=== PATIENT | female | born 1945 | race Caucasian/White ===

== ENCOUNTER 2019-03-27 08:21 | Emergency (ER) | payer OTHER ==
[~2019-03-27] VITALS: Ht 157.5 cm; Wt 71.2 kg
[2019-03-27] MEDS ORDERED: NORVASC5 MG PO (08:31)
[2019-03-27] MEDS ORDERED: COZAAR100 MG PO (08:32)
[2019-03-27] MEDS ORDERED: LEVOXYL75 MCG PO (08:32)
[2019-03-27] MEDS ORDERED: CALCIUM 600 +1 EAC1 PO (08:32)
[2019-03-27] MEDS ORDERED: ZOCOR 10 MG TAB10 MG PO (08:32)
[2019-03-27] MEDS ORDERED: GLUCOPHAGE XR500 MG PO (08:33)
[2019-03-27] MEDS ORDERED: ACTOS15 MG PO (08:33)
[2019-03-27] MEDS ORDERED: METFORMIN HCL500 MG PO (08:33)
[2019-03-27] MEDS ORDERED: ASPIR 8181 MG PO (08:34)
[2019-03-27 08:49] LABS: URINE BILIRUBIN NEGATIVE (Negative); URINE BLOOD NEGATIVE (Negative); URINE CLARITY CLEAR; URINE COLOR YELLOW; URINE GLUCOSE-RANDOM NEGATIVE (Negative); URINE KETONES NEGATIVE (Negative); URINE LEUKOCYTES-REFLEX NEGATIVE (Negative); URINE NITRITE-REFLEX NEGATIVE (Negative); URINE PROTEIN NEGATIVE (Negative); URINE SPECIFIC GRAVITY <= 1.005 (1.005-1.030); URINE UROBILINOGEN 0.2 E.U./dl (0.2-1.0)
[2019-03-27 08:51] LABS: ABSOLUTE BASOPHILS 0.2 thou/uL (0.0-0.2); ABSOLUTE EOSINOPHILS 0.7 thou/uL (0.0-0.7); ABSOLUTE LYMPHOCYTES 3.3 thou/uL (0.8-5.3); ABSOLUTE MONOCYTES 0.7 thou/uL (0.0-1.2); ABSOLUTE NEUTROPHILS 5.1 thou/uL (1.6-8.1); BASOPHILS 1.8 %; EOSINOPHILS 7.1 %; HEMATOCRIT 35.8 % (37.0-47.0); HEMOGLOBIN 12.3 gm/dL (12.0-15.0); LYMPHOCYTES 32.8 %; MCH 29.1 pg (26.0-34.0); MCHC 34.4 g/dL (28.0-37.0); MCV 84.5 fL (80.0-100.0); MPV 10.1 fl. (7.2-11.1); NUCLEATED RBCS 0 /100WBC; PLATELET COUNT* 354 thou/uL (150-400); POLYS 51.3 %; RBC 4.24 mil/uL (4.20-5.00); RDW-CV 14.4 % (10.5-14.5)
[2019-03-27 08:59] LABS: CALCIUM 9.8 mg/dL (8.5-10.1); CREATININE 1.1 mg/dL (0.6-1.3); POTASSIUM 3.7 mmol/L (3.5-5.1)
[2019-03-27 09:03] LABS: ALBUMIN 3.4 g/dL (3.4-5.0); TOTAL BILIRUBIN 0.5 mg/dL (<0.1-1.0); TOTAL PROTEIN 7.7 g/dL (6.4-8.2)
[2019-03-27] MEDS ORDERED: ZOFRAN ODT4 MG DISSOLVE (09:51)
[2019-03-27] MEDS ORDERED: CIPRO500 MG PO (09:51)
[2019-03-27] MEDS ORDERED: HYDROCODONE-AP1 EAC6 PO (09:51)
[2019-03-27 11:36] VITALS: BP 127/66
== END 2019-03-27 11:36 | disposition home or self-care (01) ==
LOC: M.ERS 08:21
PROVIDERS: Emergency Medicine Emergency Medical Services
DX: R10.32 Left lower quadrant pain (principal); E11.9 Type 2 diabetes mellitus without complications; I10 Essential (primary) hypertension; E03.9 Hypothyroidism, unspecified; Z90.49 Acquired absence of other specified parts of digestive tract; Z90.710 Acquired absence of both cervix and uterus

== ENCOUNTER 2019-07-24 09:50 | Emergency (ER) | payer OTHER ==
[~2019-07-24] VITALS: Ht 157.5 cm; Wt 69.4 kg
[~2019-07-24 09:50] MED LIST: ACTOS15 MG PO; ASPIR 8181 MG PO; CALCIUM 600 +1 EAC1 PO; CIPRO500 MG PO; COZAAR100 MG PO; GLUCOPHAGE XR500 MG PO; HYDROCODONE-AP1 EAC6 PO; LEVOXYL75 MCG PO; METFORMIN HCL500 MG PO; NORVASC5 MG PO; ZOCOR 10 MG TAB10 MG PO; ZOFRAN ODT4 MG DISSOLVE
[2019-07-24 10:41] LABS: ABSOLUTE BASOPHILS 0.2 thou/uL (0.0-0.2); ABSOLUTE EOSINOPHILS 0.7 thou/uL (0.0-0.7); ABSOLUTE MONOCYTES 0.5 thou/uL (0.0-1.2); ABSOLUTE NEUTROPHILS 4.4 thou/uL (1.6-8.1); BASOPHILS 2.5 %; EOSINOPHILS 7.5 %; HEMATOCRIT 36.8 % (37.0-47.0); HEMOGLOBIN 12.2 gm/dL (12.0-15.0); LYMPHOCYTES 34.4 %; MCH 28.5 pg (26.0-34.0); MCV 86.4 fL (80.0-100.0); MONOCYTES 5.7 %; MPV 10.3 fl. (7.2-11.1); NUCLEATED RBCS 0 /100WBC; PLATELET COUNT* 299 thou/uL (150-400); POLYS 49.9 %; RBC 4.26 mil/uL (4.20-5.00); RDW-CV 14.8 % (10.5-14.5); WBC 8.8 thou/uL (4.0-11.0)
[2019-07-24 10:52] LABS: CALCIUM 9.4 mg/dL (8.5-10.1); CREATININE 0.9 mg/dL (0.6-1.3); POTASSIUM 3.2 mmol/L (3.5-5.1)
[2019-07-24 10:57] LABS: ALBUMIN 3.5 g/dL (3.4-5.0); TOTAL BILIRUBIN 0.4 mg/dL (<0.1-1.0); TOTAL PROTEIN 7.8 g/dL (6.4-8.2)
[2019-07-24 11:30] LABS: URINE BILIRUBIN NEGATIVE (Negative); URINE BLOOD NEGATIVE (Negative); URINE CLARITY CLEAR; URINE COLOR YELLOW; URINE GLUCOSE-RANDOM NEGATIVE (Negative); URINE KETONES NEGATIVE (Negative); URINE LEUKOCYTES-REFLEX NEGATIVE (Negative); URINE NITRITE-REFLEX NEGATIVE (Negative); URINE PROTEIN NEGATIVE (Negative); URINE UROBILINOGEN 0.2 E.U./dl (0.2-1.0)
[2019-07-24] MEDS ORDERED: CLARITIN10 MG PO (12:31)
[2019-07-24] MEDS ORDERED: DIAZEPAM2 MG PO (12:31)
[2019-07-24] MEDS ORDERED: PSEUDOEPHEDRIN120 M1 PO (12:31)
[2019-07-24 12:52] VITALS: BP 121/62
== END 2019-07-24 12:53 | disposition home or self-care (01) ==
LOC: M.ERS 09:50
PROVIDERS: Personal Emergency Response Attendant
DX: R42 Dizziness and giddiness (principal); I10 Essential (primary) hypertension; E11.9 Type 2 diabetes mellitus without complications; E03.9 Hypothyroidism, unspecified; Z90.49 Acquired absence of other specified parts of digestive tract; Z90.710 Acquired absence of both cervix and uterus

== ENCOUNTER 2020-09-19 13:50 | Emergency (ER) | payer OTHER ==
[~2020-09-19] VITALS: Ht 157.5 cm; Wt 71.7 kg
[~2020-09-19 13:50] MED LIST changes: +CLARITIN10 MG PO; +DIAZEPAM2 MG PO; +PSEUDOEPHEDRIN120 M1 PO
[2020-09-19] MEDS ORDERED: KEFLEX500 M1 PO (14:01)
[2020-09-19] MEDS ORDERED: BACTRIM DS TAB1 EACH PO (14:01)
[2020-09-19 14:23] LABS: URINE BILIRUBIN NEGATIVE (Negative); URINE BLOOD NEGATIVE (Negative); URINE CLARITY CLEAR; URINE COLOR YELLOW; URINE GLUCOSE-RANDOM NEGATIVE (Negative); URINE KETONES NEGATIVE (Negative); URINE LEUKOCYTES-REFLEX NEGATIVE (Negative); URINE NITRITE-REFLEX NEGATIVE (Negative); URINE PROTEIN NEGATIVE (Negative); URINE SPECIFIC GRAVITY 1.015 (1.005-1.030); URINE UROBILINOGEN 0.2 E.U./dl (0.2-1.0)
[2020-09-19 14:53] LABS: APTT 21.9 Seconds (25.0-31.3); HEMATOCRIT 35.3 % (37.0-47.0); HEMOGLOBIN 11.8 gm/dL (12.0-15.0); MCH 28.9 pg (26.0-34.0); MCHC 33.5 g/dL (28.0-37.0); MCV 86.4 fL (80.0-100.0); MPV 10.4 fl. (7.2-11.1); NUCLEATED RBCS 0 /100WBC; PLATELET COUNT* 314 thou/uL (150-400); PROTIME 10.6 Seconds (9.20-11.50); RBC 4.08 mil/uL (4.20-5.00); RDW-CV 14.5 % (10.5-14.5)
[2020-09-19 14:54] LABS: CREATININE 1.1 mg/dL (0.6-1.3)
[2020-09-19 14:56] LABS: POTASSIUM 4.2 mmol/L (3.5-5.1)
[2020-09-19 15:04] LABS: ALBUMIN 3.2 g/dL (3.4-5.0); TOTAL BILIRUBIN 0.4 mg/dL (<0.1-1.0); TOTAL PROTEIN 7.6 g/dL (6.4-8.2)
[2020-09-19] MEDS ORDERED: ZOFRAN ODT4 MG DISSOLVE (15:25)
[2020-09-19 16:01] VITALS: BP 142/56
[2020-09-19 16:07] LABS: ABSOLUTE BASOPHILS 0.4 thou/uL (0.0-0.2); ABSOLUTE EOSINOPHILS 1.8 thou/uL (0.0-0.7); ABSOLUTE LYMPHOCYTES 3.3 thou/uL (0.8-5.3); ABSOLUTE MONOCYTES 0.8 thou/uL (0.0-1.2); ABSOLUTE NEUTROPHILS 6.8 thou/uL (1.6-8.1); PLATELET ESTIMATE ADEQUATE
--- NOTE | 2020-09-22 08:37 | EKG ---
[place] [address] ELECTROCARDIOGRAM REPORT Name: RACHEL AYOUB Room: [facility]#: [id number] Admission: 09/19/20 Attend Phys: Discharge: 09/19/20 Date of : 41 Date of Service: 09/19/20 1411 Report #: [id number] THIS REPORT FOR: //name// [facility] ED Test Date: 2020-09-19 Test Time: 14:11:09 Pat Name: RACHEL AYOUB Department: Room: Gender: F Assistant Food Service Director: SHANKAR : 1945 Requested By: Ben Quezada Order Number: [id number] MD: Vimal Freeman Measurements Intervals [place] Rate: 83 P: 36 DC: 182 QRS: -11 QRSD: 90 T: 42 QT: 376 QTc: 442 Interpretive Statements Sinus rhythm No previous ECG available for comparison Electronically Signed On 09-22-2020 8:37:01 [employer] by Vimal Freeman [email or web address] <ELECTRONICALLY SIGNED> By: Geno Freeman MD, [facility] 09/22/20 0837 1411 141 Geno Freeman MD, FAC /EPI
== END 2020-09-19 16:01 | disposition home or self-care (01) ==
LOC: M.ERS 13:50
PROVIDERS: Emergency Medicine Emergency Medical Services
DX: R11.0 Nausea (principal); Z20.828 Contact with and (suspected) exposure to other viral communicable diseases; R10.9 Unspecified abdominal pain; I10 Essential (primary) hypertension; E11.9 Type 2 diabetes mellitus without complications; E03.9 Hypothyroidism, unspecified; Z90.49 Acquired absence of other specified parts of digestive tract; Z90.710 Acquired absence of both cervix and uterus; Z79.899 Other long term (current) drug therapy; Z79.82 Long term (current) use of aspirin